=== PATIENT | male | born 1985 | race Hispanic/Latino ===

== ENCOUNTER 2018-08-10 00:39 | Emergency (ER) | payer SELFPAY ==
[2018-08-10 01:16] LABS: #Basophils 0.1 thou/uL (0.0-0.2); #Eosinphils 0.1 thou/uL (0.0-0.7); #Lymphocytes 2.7 thou/uL (1.20-3.40); #Monocytes 0.6 thou/uL (0.11-0.59); #Neutrophils 5.4 thou/uL (1.40-6.50); %Basophils 0.9 % (0.0-1.0); %Eosinophils 0.9 % (0.0-10.0); %Lymphocytes 30.7 % (21.0-51.0); %Monocytes 6.3 % (0.0-10.0); %Neutrophils 61.1 % (42.0-75.0); Hemoglobin 17.1 g/dL (14.0-18.0); Mean Corpuscular HGB CONC 34.8 g/dL (32.0-36.0); Mean Platelet Volume 9.1 fL (7.4-10.4); Platelet Count 187 thou/uL (130-400); RBC Distribution Width 13.1 % (11.5-14.5); Red Blood Cell (RBC) Count 5.53 mill/uL (4.70-6.10); White Blood Cell (WBC) Count 8.9 thou/uL (4.8-10.8)
[2018-08-10 01:36] LABS: ALT (SGPT) 39 U/L (8-55); AST (SGOT) 31 U/L (5-34); Albumin 4.3 g/dL (3.5-5.0); Alkaline Phosphatase 98 U/L (40-150); Anion Gap 14 mmol/L (10-20); BUN (Urea Nitrogen) 14 mg/dL (8.9-20.6); Bilirubin, Total 0.3 mg/dL (0.2-1.2); Calc. Creatinine Clearance 0 mL/min (70-130); Calcium 9.4 mg/dL (7.8-10.44); Carbon Dioxide 20 mmol/L (22-29); Chloride 107 mmol/L (98-107); Estimated GFR-MDRD Greater than 90; Globulin 3.6 g/dL (2.4-3.5); Glucose 102 mg/dL (70-105); Potassium 3.4 mmol/L (3.5-5.1); Protein, Total 7.9 g/dL (6.0-8.3); Sodium 138 mmol/L (136-145)
[2018-08-10 02:09] LABS: Amphetamine Not Detected (NotDetected); Barbiturates Screen Not Detected (NotDetected); Benzodiazepine Screen Not Detected (NotDetected); Cocaine Metabolite Screen Not Detected (NotDetected); Medtox Control Line Valid? VALID (VALID); Medtox Reader # READER 1; Methadone Not Detected (NotDetected); Methamphetamine Not Detected (NotDetected); Opiate Screen Not Detected (NotDetected); Oxycodone Screen Not Detected (NotDetected); Phencyclidine (PCP) Not Detected (NotDetected); THC/Cannabinoid Screen Not Detected (NotDetected); Tricyclic Screen Not Detected (NotDetected)
[2018-08-10] MEDS ORDERED: Adacel (T-DAP) 0.5 ML SYRINGE ONE (02:21)
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
--- NOTE | 2018-08-12 14:04 | EKG ---
Test Reason : Blood Pressure : / mmHG Vent. Rate : 109 BPM Atrial Rate : 109 BPM P-R Int : 156 ms QRS Dur : 086 ms QT Int : 320 ms P-R-T Axes : 053 068 040 degrees QTc Int : 430 ms Sinus tachycardia Otherwise normal ECG Confirmed by CHANTELL DAVID DO ([id number]), brands editor WELLINGTON ROSA ([id number]) on 08/12/2018 2:04:19 PM Referred By: Confirmed By:CHANTELL DAVID DO
== END 2018-08-10 03:22 ==
LOC: EDBD 00:39 → ERS 00:39
DX: S02.2XXA Fracture of nasal bones, initial encounter for closed fracture (principal); S05.12XA Contusion of eyeball and orbital tissues, left eye, initial encounter; F10.129 Alcohol abuse with intoxication, unspecified; W19.XXXA Unspecified fall, initial encounter
CPT/HCPCS: 12011; 70450; 70486; 71260; 72125; 74177; 80053; 80306; 80307; 85025; 90471; 90715; 93005; 94760; 96360; G0390

== ENCOUNTER 2018-08-11 11:03 | Emergency (ER) | payer SELFPAY | END 2018-08-11 11:45 | disposition left against medical advice (07) | LOC: ERS 11:03 | DX: Z53.21 Procedure and treatment not carried out due to patient leaving prior to being seen by health care provider (principal) ==

== ENCOUNTER 2019-05-10 12:40 | Emergency (ER) | payer SELFPAY ==
[2019-05-10] MEDS ORDERED: Iopamidol 370 76% 50 ML VIAL FS ONE (13:03)
[2019-05-10] MEDS ORDERED: ISOVUE-370 76%-LOCM 1 ML ONE (13:03)
[2019-05-10] MEDS ORDERED: Ondansetron PF 4 MG/2 ML Vial ONE (13:08)
[2019-05-10] MEDS ORDERED: Morphine 4 MG/ML VIAL ONE ×2 (13:08→14:30)
[2019-05-10 13:12] LABS: #Basophils 0.1 thou/uL (0.0-0.2); #Eosinphils 0.3 thou/uL (0.0-0.7); #Lymphocytes 2.7 thou/uL (1.20-3.40); #Monocytes 0.8 thou/uL (0.11-0.59); %Basophils 0.9 % (0.0-1.0); %Eosinophils 3.3 % (0.0-10.0); %Lymphocytes 34.1 % (21.0-51.0); %Monocytes 10.6 % (0.0-10.0); %Neutrophils 51.2 % (42.0-75.0); Hemoglobin 17.9 g/dL (14.0-18.0); Mean Corpuscular HGB CONC 35.1 g/dL (32.0-36.0); Mean Corpuscular Volume 88.2 fL (78.0-98.0); Mean Platelet Volume 8.8 fL (7.4-10.4); Platelet Count 184 thou/uL (130-400); RBC Distribution Width 12.7 % (11.5-14.5); Red Blood Cell (RBC) Count 5.79 mill/uL (4.70-6.10); White Blood Cell (WBC) Count 7.8 thou/uL (4.8-10.8)
--- NOTE | 2019-05-10 13:48 | ULT ---
Exam: Testicular ultrasound HISTORY: Right lower quadrant pain and right testicular pain x1 year. Worsening pain today. COMPARISON: None TECHNIQUE: Sagittal and transverse imaging of the left and right hemiscrotum are performed. Testicula r Doppler is performed with grayscale, color-flow, Doppler imaging and spectral waveform analysis. FINDINGS: Right hemiscrotum: Testicle: Homogeneous echotexture. No intratesticular masses. Right testicle measurements: 3.2 x 2.0 x 4.1 cm Right epididymis: Not appreciated Right epididymis measurements: Not applicable Hydrocele: None Right inguinal region: There is a hypoechoic tubular structure with vascular flow. Correlate for poss ible inguinal hernia of mesenteric fat Left hemiscrotum: Left testicle: Homogeneous echotexture. No intratesticular masses. Left testicle measurements: 2.9 x 1.8 x 4.2 cm Left epididymis: Normal echotexture. Left epididymis measurements:1.1 x 0.7 cm Hydrocele: None Testicular Doppler: There is symmetric vascular flow to the left and right testicle. . IMPRESSION: 1. Symmetric echotexture of the testicles. 2. Hypoechoic tubular structure with vascular flow in the right inguinal region. Possibility of a mes enteric hernia is raised. Correlate clinically. Consider urological surgical consultation.
[2019-05-10 13:53] LABS: ALT (SGPT) 42 U/L (8-55); AST (SGOT) 39 U/L (5-34); Albumin 4.5 g/dL (3.5-5.0); Alkaline Phosphatase 108 U/L (40-150); Anion Gap 16 mmol/L (10-20); BUN (Urea Nitrogen) 18 mg/dL (8.9-20.6); Bilirubin, Total 0.6 mg/dL (0.2-1.2); CK (CPK) 208 U/L (30-200); Calc. Creatinine Clearance 0 mL/min (70-130); Calcium 9.9 mg/dL (7.8-10.44); Carbon Dioxide 21 mmol/L (22-29); Chloride 107 mmol/L (98-107); Estimated GFR-MDRD 70; Globulin 3.2 g/dL (2.4-3.5); Glucose 104 mg/dL (70-105); Lipase 13 U/L (8-78); Potassium 3.8 mmol/L (3.5-5.1); Protein, Total 7.7 g/dL (6.0-8.3); Sodium 140 mmol/L (136-145)
[2019-05-10 14:40] LABS: Bilirubin Negative (Negative); Blood, Urine 3+ (Negative); Clarity Clear (Clear); Glucose, Urine (Dipstick) Normal (Negative); Leukocyte 25 Leu/uL (Negative); Nitrite Negative (Negative); Protein, Urine (Dipstick) 10 mg/dL (Neg-Trace); RBC/HPF 21-50 HPF (0-3); Squamous Epithelial None Seen HPF (0-3); Urobilinogen Normal mg/dL (Less than 2)
[2019-05-10 14:41] LABS: Bacteria/HPF 1+ HPF (None Seen)
--- NOTE | 2019-05-10 15:34 | CT ---
ABDOMEN CT WITH CONTRAST PELVIC CT WITH CONTRAST: HISTORY: Right lower quadrant pain. COMPARISON: 08/10/2018. FINDINGS: ABDOMEN CT: lung bases are clear. Normal heart size. Unremarkable aorta. Portal vein is patent. Unremarkable gallbladder. Liver, spleen, pancreas and adrenal glands have appropriate attenuation and enhancement. No gastrohepatic, retrocrural or periportal lymphadenopathy. No mesenteric mass, lymphadenopathy, free air or free fluid. Gastric mucosa, duodenum and multiple normal caliber small bowel loops. Ileocecal junction is unremar kable. Normal caliber appendix. Scattered fecal material in a nondistended, nondilated colon. Occasional diverticulum. No diverticulitis. There is decreased/delayed enhancement of the right kidney. There is a nonobstructing calculus in the right renal pelvis measuring 0.4 cm. There is a second smaller punctate calcification in the upper pole moiety measuring 0.2 cm. There is mild to moderate dilatation of the right intrarenal collecting system as well as the right ureter. There is a 0.4 cm calculus in the proximal right ureter. There is a nonobstructing 0.4 cm calculus in the left renal pelvis. No evidence of left-sided obstructive u ropathy. PELVIC CT: Unremarkable urinary bladder. No pelvic mass, adenopathy, free air or fluid. OSSEOUS STRUCTURES: No lytic or blastic lesions in the osseous structures. IMPRESSION: 1. Normal caliber appendix. No evidence of bowel obstruction. 2. Decreased/delayed enhancement in the right kidney. There is moderate right-sided obstructive uropa thy secondary to a 4 mm calculus in the proximal right ureter. Transcribed Date/Time: 05/10/2019 3:42 PM
== END 2019-05-10 17:23 | disposition home or self-care (01) ==
LOC: ERS 12:40
DX: N20.2 Calculus of kidney with calculus of ureter (principal); F17.210 Nicotine dependence, cigarettes, uncomplicated
CPT/HCPCS: 36415; 74177; 76870; 80053; 81003; 81015; 82550; 83605; 83690; 85025; 93976; 96361; 96374; 96375; 96376; J2270; J2405; Q9966; Q9967